=== PATIENT | male | born 1980 | race Caucasian/White ===

== ENCOUNTER 2017-11-25 16:50 | Emergency (ER) | payer OTHER ==
[~2017-11-25] VITALS: Ht 185.4 cm; Wt 95.3 kg
[~2017-11-25 16:50] MED LIST: ACETAMINOPHEN-1 EAC1 PO; AMOXICILLIN 50500 M1 PO; CALCIUM OYSTER500 MG; CIPRO500 MG PO; FLEXERIL; FLEXERIL PO; GABAPENTIN 100100 MG PO; HYDROCODON-ACE1 EAC8; HYDROCODON-ACE1 EAC8 PO; HYDROCODONE-AP1 EAC6 PO; HYDROXYCHLOROQ200 M1; HYDROXYCHLOROQ200 M1 PO; IBUPROFEN 800800 M1 PO; IBUPROFEN 800800 MG PO; LEVAQUIN 500 M500 M4 PO; LIORESAL 10 MG10 MG PO; LISINOPRIL40 MG; MEDROL DOSPAK21 TAB PO; MOBIC15 MG; MOBIC7.5 M1 PO; NAPROSYN500 MG PO; NEURONTIN 300300 M1 PO; NEURONTIN 400400 M1 PO; NOHOMEMEDICATIONS; NORCO 5-325 TA1 EACH PO; NORTRIPTYLINE H10 M1 PO; NORTRIPTYLINE H25 M3 PO; OMEPRAZOLE40 MG; PAMELOR25 MG; PAXIL20 MG PO; PERCOCET 5-3251 EACH PO; PREDNISONE 10 M10 MG; PREDNISONE 20 M20 MG PO; PREDNISONE50 MG PO; ROBAXIN 750 MG750 M1 PO; ROBAXIN 750 MG750 MG PO; ROBAXIN500 MG PO; TRAMADOL 50 MG50 MG PO; ULTRAM 50MG TAB50 MG PO; VALIUM5 MG PO; VICODIN 5-5001 EACH PO; VITAMIN D1000 UNI1; WELLBUTRIN 100100 MG PO; WELLBUTRIN SR150 MG PO; ZOFRAN ODT4 MG PO; ZOFRAN4 MG PO; smz/tmp
[2017-11-25 17:21] LABS: ABSOLUTE BASOPHILS 0.1 thou/uL (0.0-0.2); ABSOLUTE EOSINOPHILS 0.3 thou/uL (0.0-0.7); ABSOLUTE MONOCYTES 0.5 thou/uL (0.0-1.2); ABSOLUTE NEUTROPHILS 3.1 thou/uL (1.6-8.1); BASOPHILS 0.9 %; EOSINOPHILS 4.5 %; HEMATOCRIT 42.1 % (42.0-52.0); HEMOGLOBIN 14.5 gm/dL (14.0-18.0); LYMPHOCYTES 33.7 %; MCH 31.4 pg (26.0-34.0); MCHC 34.5 g/dL (28.0-37.0); MCV 90.9 fL (80.0-100.0); MONOCYTES 7.8 %; MPV 9.1 fl. (7.2-11.1); NUCLEATED RBCS 0 /100WBC; PLATELET COUNT* 154 thou/uL (150-400); POLYS 53.1 %; RBC 4.63 mil/uL (4.50-6.00); RDW-CV 12.6 % (10.5-14.5); WBC 5.9 thou/uL (4.0-11.0)
[2017-11-25 17:26] LABS: CALCIUM 9.1 mg/dL (8.5-10.1); POTASSIUM 3.9 mmol/L (3.5-5.1)
[2017-11-25 17:31] LABS: ALBUMIN 3.5 g/dL (3.4-5.0); TOTAL BILIRUBIN 0.1 mg/dL (<0.1-1.0); TOTAL PROTEIN 7.2 g/dL (6.4-8.2)
[2017-11-25] MEDS ORDERED: NORCO 5-325 TA1 EACH PO (18:18)
[2017-11-25 18:56] VITALS: BP 128/81
== END 2017-11-25 18:58 | disposition home or self-care (01) ==
LOC: M.ERS 16:50
PROVIDERS: Family Medicine
DX: S20.212A Contusion of left front wall of thorax, initial encounter (principal); M25.562 Pain in left knee; M54.2 Cervicalgia; M32.9 Systemic lupus erythematosus, unspecified; F17.210 Nicotine dependence, cigarettes, uncomplicated; Z87.442 Personal history of urinary calculi; Z98.890 Other specified postprocedural states; Z88.1 Allergy status to other antibiotic agents; W11.XXXA Fall on and from ladder, initial encounter; Y93.89 Activity, other specified; Y92.89 Other specified places as the place of occurrence of the external cause; Y99.8 Other external cause status

== ENCOUNTER 2017-12-13 20:27 | Emergency (ER) | payer OTHER ==
[~2017-12-13] VITALS: Ht 182.9 cm; Wt 91.2 kg
[2017-12-13 20:29] VITALS: BP 122/82
[2017-12-13] MEDS ORDERED: ULTRAM 50MG TAB50 MG (20:32)
[2017-12-13] MEDS ORDERED: NEURONTIN 400M400 M2 (20:34)
[2017-12-13] MEDS ORDERED: WELLBUTRIN SR150 MG (20:34)
[2017-12-13] MEDS ORDERED: TRAMADOL 50 MG50 MG PO (20:58)
[2017-12-13] MEDS ORDERED: NAPROSYN500 MG PO (20:58)
== END 2017-12-13 21:07 | disposition home or self-care (01) ==
LOC: M.ERS 20:27
DX: M25.562 Pain in left knee (principal); M32.9 Systemic lupus erythematosus, unspecified; F17.210 Nicotine dependence, cigarettes, uncomplicated; Z87.442 Personal history of urinary calculi; Z88.1 Allergy status to other antibiotic agents

== ENCOUNTER 2018-02-16 21:39 | Emergency (ER) | payer OTHER ==
[~2018-02-16] VITALS: Ht 182.9 cm; Wt 89.4 kg
[~2018-02-16 21:39] MED LIST changes: +NEURONTIN 400M400 M2; +ULTRAM 50MG TAB50 MG; +WELLBUTRIN SR150 MG
[2018-02-16 21:59] LABS: URINE BILIRUBIN NEGATIVE (Negative); URINE BLOOD NEGATIVE (Negative); URINE CLARITY CLEAR; URINE COLOR YELLOW; URINE GLUCOSE-RANDOM NEGATIVE (Negative); URINE KETONES NEGATIVE (Negative); URINE LEUKOCYTES NEGATIVE (Negative); URINE NITRITE NEGATIVE (Negative); URINE PROTEIN 1+ (Negative); URINE SPECIFIC GRAVITY >= 1.030 (1.005-1.030); URINE UROBILINOGEN 0.2 E.U./dl (0.2-1.0)
[2018-02-16 22:09] LABS: ABSOLUTE BASOPHILS 0.1 thou/uL (0.0-0.2); ABSOLUTE EOSINOPHILS 0.3 thou/uL (0.0-0.7); ABSOLUTE LYMPHOCYTES 2.3 thou/uL (0.8-5.3); ABSOLUTE MONOCYTES 0.5 thou/uL (0.0-1.2); ABSOLUTE NEUTROPHILS 4.5 thou/uL (1.6-8.1); BASOPHILS 0.8 %; EOSINOPHILS 4.3 %; HEMATOCRIT 42.1 % (42.0-52.0); HEMOGLOBIN 14.8 gm/dL (14.0-18.0); LYMPHOCYTES 29.8 %; MCHC 35.2 g/dL (28.0-37.0); MCV 90.9 fL (80.0-100.0); MPV 9.5 fl. (7.2-11.1); NUCLEATED RBCS 0 /100WBC; PLATELET COUNT* 157 thou/uL (150-400); POLYS 58.1 %; RBC 4.63 mil/uL (4.50-6.00); RDW-CV 12.6 % (10.5-14.5); WBC 7.7 thou/uL (4.0-11.0)
[2018-02-16 22:22] LABS: CALCIUM 8.9 mg/dL (8.5-10.1); CREATININE 1.5 mg/dL (0.6-1.3)
[2018-02-16 22:27] LABS: ALBUMIN 3.4 g/dL (3.4-5.0); TOTAL BILIRUBIN 0.2 mg/dL (<0.1-1.0); TOTAL PROTEIN 7.2 g/dL (6.4-8.2)
[2018-02-16] MEDS ORDERED: CIPRO500 MG PO (23:23)
[2018-02-16] MEDS ORDERED: HYDROCODONE-AP1 EAC6 PO (23:23)
[2018-02-16 23:40] VITALS: BP 114/72
== END 2018-02-16 23:42 | disposition home or self-care (01) ==
LOC: M.ERS 21:39
PROVIDERS: Physician Assistant
DX: R10.9 Unspecified abdominal pain (principal); N45.1 Epididymitis; M32.9 Systemic lupus erythematosus, unspecified; F17.210 Nicotine dependence, cigarettes, uncomplicated; Z88.1 Allergy status to other antibiotic agents

== ENCOUNTER 2019-06-01 18:58 | Emergency (ER) | payer OTHER ==
[~2019-06-01] VITALS: Ht 182.9 cm; Wt 97.5 kg
[2019-06-01] MEDS ORDERED: IBUPROFEN 800800 M1 PO (20:16)
[2019-06-01 20:30] VITALS: BP 133/84
== END 2019-06-01 20:32 | disposition home or self-care (01) ==
LOC: M.ERS 18:58
DX: S43.491A Other sprain of right shoulder joint, initial encounter (principal); F17.210 Nicotine dependence, cigarettes, uncomplicated; M32.9 Systemic lupus erythematosus, unspecified; M48.00 Spinal stenosis, site unspecified; Z87.39 Personal history of other diseases of the musculoskeletal system and connective tissue; Z98.890 Other specified postprocedural states; Z87.442 Personal history of urinary calculi; Z88.1 Allergy status to other antibiotic agents; W01.0XXA Fall on same level from slipping, tripping and stumbling without subsequent striking against object, initial encounter; Y92.59 Other trade areas as the place of occurrence of the external cause; Y93.01 Activity, walking, marching and hiking; Y99.8 Other external cause status

== ENCOUNTER 2019-09-15 12:35 | Emergency (ER) | payer OTHER ==
[~2019-09-15] VITALS: Ht 182.9 cm; Wt 102.1 kg
[2019-09-15] MEDS ORDERED: NORCO 5-325 TA1 EAC1 PO (14:32)
[2019-09-15] MEDS ORDERED: IBUPROFEN 800800 M1 PO (14:32)
[2019-09-15 14:39] VITALS: BP 156/79
== END 2019-09-15 14:41 | disposition home or self-care (01) ==
LOC: M.ERS 12:35
DX: M25.512 Pain in left shoulder (principal); M32.9 Systemic lupus erythematosus, unspecified; M19.90 Unspecified osteoarthritis, unspecified site; M48.00 Spinal stenosis, site unspecified; F17.210 Nicotine dependence, cigarettes, uncomplicated; Z87.442 Personal history of urinary calculi; Z88.1 Allergy status to other antibiotic agents

== ENCOUNTER 2020-04-25 17:49 | Emergency (ER) | payer OTHER ==
[~2020-04-25] VITALS: Ht 182.9 cm; Wt 99.8 kg
[~2020-04-25 17:49] MED LIST changes: +NORCO 5-325 TA1 EAC1 PO
[2020-04-25 20:31] VITALS: BP 130/80
== END 2020-04-25 20:31 | disposition left against medical advice (07) ==
LOC: M.ERS 17:49
DX: Z53.21 Procedure and treatment not carried out due to patient leaving prior to being seen by health care provider (principal)

== ENCOUNTER → 2021-06-19 | Outpatient (CLI) | payer BC ==
[~2021-06-19] MED LIST changes: +NEURONTIN 300M300 M2 PO
== END ==
LOC: M.PC 09:21
PROVIDERS: ATTEND Physical Medicine & Rehabilitation
DX: M47.26 Other spondylosis with radiculopathy, lumbar region (principal); M79.604 Pain in right leg; Z79.899 Other long term (current) drug therapy; Z79.891 Long term (current) use of opiate analgesic